=== PATIENT | female | born 1960 | race Caucasian/White ===

== ENCOUNTER 2016-11-08 05:58 | Day surgery (SDC) | payer OTHER ==
[2016-11-08] MEDS ORDERED: IV START KIT ONE (06:05)
[2016-11-08] MEDS ORDERED: LACTATED RINGERS 1,000 ML ONE (06:05)
[2016-11-08] MEDS ORDERED: FENTANYL 250 MCG/5 ML AMP IV PRN (07:09)
[2016-11-08] MEDS ORDERED: MIDAZOLAM HCL 5 MG/5 ML VIAL IV PRN (07:09)
[2016-11-08] MEDS ORDERED: LACTATED RINGERS 1,000 ML IV SCH (07:15)
[2016-11-08] MEDS ORDERED: PROPOFOL 40 ML IV ONE (08:10)
== END 2016-11-08 08:45 | disposition home or self-care (01) ==
LOC: SDC 05:58
PROVIDERS: ATTEND Family Medicine
PROC: 0DJD8ZZ Inspection of Lower Intestinal Tract, Via Natural or Artificial Opening Endoscopic (ICD-10-PCS; principal; 2016-11-08)
DX: Z12.11 Encounter for screening for malignant neoplasm of colon (principal); K57.30 Diverticulosis of large intestine without perforation or abscess without bleeding; I10 Essential (primary) hypertension; E03.9 Hypothyroidism, unspecified; Z88.4 Allergy status to anesthetic agent
CPT/HCPCS: 45378; J3010; J2250; J7120 ×2